=== PATIENT | male | born 1975 | race Two or more races ===

== ENCOUNTER 2021-11-24 13:30 | Emergency (ER) | payer OTHER ==
[~2021-11-24] VITALS: Ht 177.8 cm; Wt 90.3 kg
[2021-11-24] MEDS ORDERED: ZESTRIL2.5 MG PO (18:23)
[2021-11-24] MEDS ORDERED: NORFLEX100MG PO (21:57)
== END 2021-11-25 04:21 | disposition home or self-care (01) ==
LOC: ER 13:30
DX: S00.11XA Contusion of right eyelid and periocular area, initial encounter (principal); S30.0XXA Contusion of lower back and pelvis, initial encounter; S20.224A Contusion of middle back wall of thorax, initial encounter; M54.2 Cervicalgia; V49.59XA Passenger injured in collision with other motor vehicles in traffic accident, initial encounter; Y93.89 Activity, other specified; Y92.488 Other paved roadways as the place of occurrence of the external cause; Y99.8 Other external cause status